=== PATIENT | female | born 1980 | race Caucasian/White ===

== ENCOUNTER 2016-09-03 15:00 | Observation (INO) | payer BC ==
[~2016-09-03] VITALS: Ht 162.6 cm; Wt 82.1 kg
--- NOTE | 2016-09-26 08:57 | HP ---
ADMIT: 09/03/2016 RM/LOC: 224 [facility] MR#: [id number] [address] [address] PRISCILA HEBERT [address] [place] [address] History and Physical SEX: F AGE: 36 : 1980 DATE OF SERVICE: CHIEF COMPLAINT: Elevated blood pressure. HISTORY OF PRESENT ILLNESS: This is a 36-year-old female, 5, para 3-0- 1-3, who presents to the [facility] with an intrauterine at 26 and 5/7th weeks' gestation. Estimated date of confinement is 12/05/2016 based off a 6-week ultrasound. She initially complained of swelling and was seen at the clinic. Her blood pressure there was 160/110, and she did have 2+ protein on UA. She was subsequently sent to the [facility] for further evaluation. At this time, she denies headaches, vision changes, or right upper quadrant pain. She does report swelling and some tingling in her lower extremities. Her has been complicated by potential Zika virus exposure. She did have a negative Zika virus testing. Blood pressures at the [facility] have been consistently 130s/90s. PAST OBSTETRICAL HISTORY: She has had 3 term spontaneous vaginal deliveries. She did have one 14-week miscarriage. LABORATORY DATA: Blood type is A negative. Antibody screen negative. HIV negative. RPR nonreactive. Hepatitis B surface antigen negative. Rubella immune. Gonorrhea and chlamydia are negative. Quad screen was normal. Diabetic screen has not been done yet. PAST MEDICAL HISTORY: She denies hypertension, diabetes, asthma, kidney, or thyroid disease. PAST SURGICAL HISTORY: Left wrist surgery in 1992. SOCIAL HISTORY: She is . She denies tobacco, alcohol, or drug use. ALLERGIES: NO KNOWN DRUG ALLERGIES. CURRENT MEDICATIONS: 1. vitamins. 2. Tums as needed. PHYSICAL EXAMINATION: VITAL SIGNS: Her initial blood pressure was 148/109, subsequent blood pressures have been 130s to 140s/80s to 90s, pulse 50s to 60s, she is afebrile. GENERAL: This is a pleasant female, in no acute distress. HEENT: Head is normocephalic and atraumatic. Pupils are equal, round, react to light and accommodation. Extraocular muscles are intact. NECK: Supple. HEART: Regular rate and rhythm. LUNGS: Clear bilaterally. ABDOMEN: Soft, nontender, and nondistended. Gravid. ADMIT: 09/03/2016 RM/LOC: 224 [facility] MR#: [id number] [address] [address] ROSCOEPRISCILA HARDIN Melissa [address] [place] [address] History and Physical SEX: F AGE: 36 : 1980 EXTREMITIES: Nontender. She does have 2+ edema. DTRs are 1+ bilaterally. LABORATORY DATA: CBC shows white blood cell count 7.0, hemoglobin 13.2, hematocrit 38.2, and platelet count 236. Creatinine is 0.8, AST 18, ALT 26, and the remainder of her labs appear normal. Urine protein to creatinine ratio 0.9. heart tones are 150s. IMPRESSION: 1. This is a 36-year-old female, 5, para 3-0-1-3 with an intrauterine at 26 and 5/7th weeks' gestation. 2. Elevated blood pressure likely preeclampsia without severe features. PLAN: At this time, we do plan to admit the patient for observation, keep her overnight, and monitor her blood pressures. We will start betamethasone 12 mg IM x1 now and repeat this in 24 hours. We will also order an ultrasound to assess for growth and position and GUS. We will additionally start a 24- hour urine for protein. If her blood pressures remain mildly elevated, we can manage her as an outpatient and watch her closely for worsening signs or symptoms of severe preeclampsia. Should she develop signs or symptoms of severe preeclampsia, we will have to discuss transfer to [place] for management. Tiffanie Lim MD/ kavya JOB #: [id number] CC: Nikia Ledesma, Attending Physician Nikia Ledesma, Family Physician
== END 2016-09-04 10:25 | disposition home or self-care (01) ==
LOC: 2LDRP 15:00 → BC 15:00 → 2LDRP 17:30
PROVIDERS: ADMIT Obstetrics & Gynecology
DX: O14.92 Unspecified pre-eclampsia, second trimester (principal); Z3A.26 26 weeks gestation of pregnancy; Z98.890 Other specified postprocedural states

== ENCOUNTER → 2016-09-04 | Outpatient (CLI) | payer BC | END | disposition home or self-care (01) | LOC: BC 20:07 | DX: O14.92 Unspecified pre-eclampsia, second trimester (principal); O36.5920 Maternal care for other known or suspected poor fetal growth, second trimester, not applicable or unspecified; Z3A.26 26 weeks gestation of pregnancy ==

== ENCOUNTER 2016-09-05 16:30 | Outpatient (CLI) | payer BC | END 2016-09-05 19:40 | disposition home or self-care (01) | LOC: BC 16:30 → 2LDRP 16:30 → BC 19:40 | DX: O99.89 Other specified diseases and conditions complicating pregnancy, childbirth and the puerperium (principal); R03.0 Elevated blood-pressure reading, without diagnosis of hypertension; Z3A.27 27 weeks gestation of pregnancy ==

== ENCOUNTER 2016-09-08 17:20 | Outpatient (CLI) | payer BC ==
--- NOTE | 2016-10-13 08:35 | HP ---
ADMIT: 09/08/2016 RM/LOC: 227 [facility] MR#: [id number] [facility] [address] [place], [place] [address] PRISCILA HEBERT [address] [place] [address] History and Physical SEX: F AGE: 36 : 1980 Corrected: 09/09/2016 1627 ajf DATE OF SERVICE: REASON FOR ADMISSION: Preeclampsia. HISTORY OF PRESENT ILLNESS: The patient is a 36-year-old, 5, para 3-0- 1-3, who presented to the office on 09/08/2016, for surveillance of preeclampsia. The patient had been diagnosed on 09/03/2016, with preeclampsia due to blood pressures greater than 140s over 90s and proteinuria. The patient at that time had besides proteinuria, had normal preeclampsia labs including CBC, CMP, and uric acid. The patient had an ultrasound for growth at that time which showed estimated weight approximately 10th percentile, and cord Dopplers were obtained and were elevated. This case was discussed with Dr. Alexx Fitzgerald at [facility] at that time and the plan was for daily surveillance with biophysical profiles, blood pressure, and labs. The patient's blood pressures remained in 140s over 90s and biophysical profiles have been reassuring and labs had been stable until 09/08/2016. On 09/08/2016, the patient presented to the [facility] for blood pressure check and laboratory evaluation. At that time, her blood pressures were noted to be in the 160s over 170s, and laboratory evaluation revealed elevated liver function tests with AST of 60 and ALT of 69. At this time, the case was discussed with Dr. Jason Viveros at [facility] and plan was for the patient to have care transferred to [facility] due to possible need for indicated delivery. Of note, the patient did receive 2 doses of steroids on 09/03 and 09/04/2016. LABORATORY DATA: Blood type is A negative, antibody screen negative, HIV is negative, gonorrhea and chlamydia negative, rubella immune, RPR nonreactive, hep B surface antigen negative, quad screen was within normal limits. PAST MEDICAL HISTORY: History of cervical dysplasia. PAST SURGICAL HISTORY: Left wrist surgery in 1992. ALLERGIES: NO KNOWN MEDICAL ALLERGIES. MEDICATIONS: vitamins daily. FAMILY HISTORY: Maternal grandmother with breast cancer. SOCIAL HISTORY: The patient is . She denies any alcohol, tobacco, or drug use. REVIEW OF SYSTEMS: GENERAL: The patient is feeling generally well. CARDIOVASCULAR: No chest pain, palpitations, or dyspnea with exertion. RESPIRATORY: The patient does complain of slight shortness of breath. GASTROINTESTINAL: The patient complaints of epigastric pain which started on presentation from office to the hospital. ADMIT: 09/08/2016 RM/LOC: 227 [facility] MR#: [id number] [id number] [place], [place] [id number] PRISCILA HEBERT [address] [place] [address] History and Physical SEX: F AGE: 36 : 1980 GENITOURINARY: No contractions, vaginal bleeding, or loss of fluid. MUSCULOSKELETAL: No joint pain or muscle weakness. PHYSICAL EXAMINATION: GENERAL: The patient is alert and oriented, no acute distress. HEART: Regular rate and rhythm without murmurs, gallops, or rubs. LUNGS: Clear to auscultation bilaterally. ABDOMEN: Soft. Mild tenderness to palpation in the epigastrium. Fundus was nontender. EXTREMITIES: 1+ edema. No calf tenderness. LABORATORY DATA: On 09/08/2016, white count 10.9, hemoglobin 13.5, hematocrit 37.9, and platelets 239. Uric acid 6.5. BUN 19, creatinine 0.9, sodium 138, potassium 3.9, chloride 111, AST 60, ALT 69, alkaline phosphatase 75. A 24- hour urine protein collected on 09/04/2016 is 1836. ASSESSMENT AND PLAN: 1. A 36-year-old, 5, para 3-0-1-3 at 27 and 4/7th weeks' gestation by 1st trimester ultrasound with estimated date of confinement 12/05/2016. 2. Preeclampsia with severe features. The patient is being transferred to [facility] for higher level of care due to possible need for indicated delivery. The patient is to be started on magnesium sulfate prior to transfer. The patient did receive 2 doses of steroids on 09/03 and 09/04/2016. 3. Rh negative status. Nikia Ledesma MD/ kavya JOB #: [id number] CC: Nikia Ledesma, Attending Physician UNKNOWN, Family Physician Corrected: 09/09/2016 1627 ajf
== END 2016-09-08 18:10 | disposition short-term general hospital (02) ==
LOC: 2LDRP 17:20 → BC 17:20
DX: O14.92 Unspecified pre-eclampsia, second trimester (principal); Z67.91 Unspecified blood type, Rh negative; Z3A.27 27 weeks gestation of pregnancy